=== PATIENT | male | born 1940 | race Caucasian/White ===

== ENCOUNTER 2016-11-17 14:50 | Emergency (ER) | payer OTHER ==
[~2016-11-17] VITALS: Ht 185.4 cm; Wt 102.0 kg
[~2016-11-17 14:50] MED LIST: APIX1TAB3 PO; LSX20 PO
[2016-11-17 14:53] VITALS: Ht 185.4 cm; Wt 102.0 kg
--- NOTE | 2016-11-17 15:12 | EMERGENCY ROOM VISIT NOTE ---
History Report prepared by Piper: Derek Gerardo Under the Supervision of: Dr. Verena Watts M.D. First contact with patient: 15:08 Chief Complaint: NOSE BLEED (MINOR) Stated Complaint: NOSE BLEED, SENT BY OFFICE History of Present Illness The patient is a 76 year old male who presents to the Emergency Room with complaints of intermittent, worsening epistaxis beginning three days ago. The patient states that his epistaxis tapers on and off. He reports that when it begins, blood begins to "gush" out of his nose. The patient notes that he has been experiencing epistaxis intermittently, but today it was more consistent. He states that he can feel the blood running down the back of his throat. The patient denies being recently sick that would cause him to sneeze more frequently. He reports that he went to a clinic in [place] and was told to come here. The patient states that he has not received medication through his nose yet. He notes that he has to sleep in a chair at night because laying down makes his symptoms worse. The patient states that he was in the ER six months ago for intermittent episodes of losing his balance with mild headaches. He denies a history of hypertension and epistaxis. He reports that he has been on Eliquis for the past three years due to his atrial fibrillation, and he follows up with Dr. Holly. Source of History: patient Onset: three days ago Position: nose Quality: other (epistaxis) Timing: intermittent, worsening Modifying Factors (Worsening): other (laying down) Review of Systems See HPI for pertinent positives & negatives. A total of 10 systems reviewed and were otherwise negative. Past Medical & Surgical Medical Problems: (1) Heart disease (2) Left sided numbness (3) PNA (pneumonia) (4) Stomach problems Surgical Problems: (1) Hx of appendectomy Family History FH: cancer FH: heart disease Social History Smoking Status: Never Smoker Drug Use: none Marital Status: Housing Status: lives with family Occupation Status: retired Current/Historical Medications Scheduled Apixaban (Eliquis), 5 MG PO DAILY Aspirin (Aspirin Ec), 81 MG PO DAILY Furosemide (Furosemide), 20 MG PO DAILY Allergies Coded Allergies: No Known Allergies (Unverified , 11/17/16) Physical Exam Vital Signs Date Time Temp Pulse Resp B/P (MAP) Pulse Ox O2 Delivery O2 Flow Rate FiO2 11/17/16 16:12 36.6 74 20 114/92 92 11/17/16 14:53 36.6 74 20 114/92 92 Room Air Physical Exam Vital signs reviewed. General: Well-appearing, in no significant distress. HEENT: No scleral icterus, PERRLA, neck supple. Atraumatic. Minimal active bleeding from the left naris. Cardiovascular: Regular rate and rhythm, no extra sounds. Pulmonary: Clear to auscultation bilaterally, normal work of breathing. Abdomen: Soft, nontender, nondistended, positive bowel sounds. Musculoskeletal: Atraumatic, no peripheral edema. Neurologic: Patient awake alert and oriented x 3 Skin: Warm, dry, no rash Medical Decision & Procedures Laboratory Results Medications Administered Medications (Trade) Dose Ordered Sig/Patricia Route Start Time Stop Time Status Last Admin Dose Admin Oxymetazoline HCl (Afrin 0.05% Nasal [place]) 1 sprays NOW ONCE MOLLY 11/17/16 15:30 11/17/16 15:31 DC 11/17/16 15:31 1 SPRAYS Sodium Chloride (Victoria Nasal [place]) 225 sprays STK-MED ONCE .ROUTE 11/17/16 16:26 11/17/16 16:27 DC 11/17/16 16:26 225 SPRAYS ED Course 1515: Past medical records reviewed. The patient was evaluated in room B06. A complete history and physical examination was performed. 1530: Ordered Oxymetazoline HCl 1 spray MOLLY 1555: I reevaluated the patient. After receiving Afrin, his bleeding stopped. He denied having any other work up and would like to go home. The patient verbalized complete understanding of the discharge instructions. The patient was discharged. Medical Decision Differential diagnosis: Etiologies such as anterior epistaxis, coagulopathy, traumatic injury, fracture , septal hematoma, posterior epistaxis as well as other pathologies were entertained. Medication Reconciliation: I attest that I have personally reviewed the patient' s current medication list. Blood Pressure Screening: Patient was found to have normal blood pressure on screening and does not require follow-up. This patient was evaluated and appeared to be in no significant distress. Patient's self placed nasal packing was removed. Afrin nasal spray was applied with a clamp. The patient would not leave the clamp in place consistently. Due to the complaints of gait imbalance, dizziness, his anticoagulation an nasal bleeds, a head CT and laboratory work was ordered. This was discussed with the patient had a time however he later refused the interventions stating that they are not necessary. He is concerned about hospital bills. I once again reiterated the need for a workup given his complaint however he politely declined. The bleeding had subsided. The patient was given instructions regarding epistaxis. He will hold his Eliquis for 7 days. The patient will follow-up with his physician for reevaluation and ENT if necessary. He will return to the ER for worsening of symptoms or any medical concerns. Impression Primary Impression: Epistaxis, recurrent Scribe Attestation The scribe's documentation has been prepared under my direction and personally reviewed by me in its entirety. I confirm that the note above accurately reflects all work, treatment, procedures, and medical decision making performed by me. Departure Information Dispostion Home / Self-Care Referrals Roland Holly M.D. (PCP) Forms HOME CARE DOCUMENTATION FORM, IMPORTANT VISIT INFORMATION, WORK / SCHOOL INSTRUCTIONS Patient Instructions My [facility], Nosebleeds - [facility] Additional Instructions Diagnosis: Epistaxis Avoid scratching, rubbing, picking, or blowing your nose. The clothespin drier operator your nasal passages the more likely they are to bleed. The following two products are available [id number] at most drug stores/pharmacies: [place] nasal spray or similar generic saline spray to keep the nose moist 3 to 4 times a day or Apply [place] gel 2-3 times daily to the nostrils to keep them moist. Stop the aspirin and Eliquis for 7 days. If bleeding recurs use Afrin nasal spray and apply clamp/direct pressure for an uninterrupted 30 minutes. On and off pressure is much less effective because it will disturb the clots that are forming. If the bleeding is still a problem after 30 minutes or is so heavy despite the pressure return to the emergency department. Follow-up with your primary care physician in 2 to 3 days for a recheck of your current condition if problems persist.
[2016-11-17] MEDS ORDERED: OXYMETAZOLINE HCL 0.05% NA SPR 15 ML BTL NAE ONE (15:30)
[2016-11-17] MEDS ORDERED: ASPI81TA28 PO (16:06)
[2016-11-17] MEDS ORDERED: APIX1TAB3 PO (16:07)
[2016-11-17 16:12] VITALS: BP 114/92; PULSE 74; TEMP 36.6; O2SAT 92
[2016-11-17] MEDS ORDERED: SODIUM CHLORIDE 0.65% NA SOLN 45 ML (OCEAN) ONE (16:26)
== END 2016-11-17 16:12 | disposition home or self-care (01) ==
LOC: C.EDB 14:51
DX: R04.0 Epistaxis (principal); I51.9 Heart disease, unspecified; Z82.49 Family history of ischemic heart disease and other diseases of the circulatory system; Z79.82 Long term (current) use of aspirin